=== PATIENT | female | born 1965 | race Caucasian/White ===

== ENCOUNTER 2017-01-29 13:00 | Emergency (ER) | payer MEDICAID ==
[~2017-01-29] VITALS: Ht 154.9 cm; Wt 74.8 kg
[2017-01-29 13:01] VITALS: BP 161/41
== END 2017-01-29 15:16 | disposition home or self-care (01) ==
LOC: ED 13:00
DX: S92.511A Displaced fracture of proximal phalanx of right lesser toe(s), initial encounter for closed fracture (principal); E11.9 Type 2 diabetes mellitus without complications; W22.8XXA Striking against or struck by other objects, initial encounter; Z79.84 Long term (current) use of oral hypoglycemic drugs; Y93.89 Activity, other specified; Y99.8 Other external cause status; Y92.89 Other specified places as the place of occurrence of the external cause

== ENCOUNTER 2017-10-11 19:53 | Emergency (ER) | payer MEDICAID ==
[2017-10-11 21:36] VITALS: BP 124/65
== END 2017-10-11 21:36 | disposition home or self-care (01) ==
LOC: ED 19:53
DX: J06.9 Acute upper respiratory infection, unspecified (principal); Z85.3 Personal history of malignant neoplasm of breast; E11.9 Type 2 diabetes mellitus without complications; I10 Essential (primary) hypertension
CPT/HCPCS: Q0092

== ENCOUNTER 2018-05-10 13:33 | Emergency (ER) | payer MEDICAID ==
[~2018-05-10] VITALS: Ht 152.4 cm; Wt 72.6 kg
[2018-05-10 13:36] VITALS: Ht 152.4 cm; Wt 72.6 kg
[2018-05-10 14:11] LABS: BASOPHIL % 0.3 % (0-2); PLATELET COUNT 147 x10^3mcL (130-400); RED CELL DISTRIBUTION WIDTH 13.1 % (11.5-14.5)
[2018-05-10 14:33] LABS: ALKALINE PHOSPHATASE 359 U/L (46-116); ALT/SGPT 87 U/L (14-59); AMYLASE 67 U/L (25-115); AST/SGOT 80 U/L (15-37); BILIRUBIN TOTAL 0.6 mg/dL (0.20-1.00); CALCIUM 7.9 mg/dL (8.5-10.1); CHLORIDE SERUM 96 mmol/L (98-107); GFR1 > 60 mL/min; LIPASE 137 IU/L (73-393); POTASSIUM SERUM 4.5 mmol/L (3.5-5.1); SODIUM SERUM 130 mmol/L (136-145); TOTAL PROTEIN, SERUM 7.4 g/dL (6.4-8.2)
[2018-05-10 14:43] LABS: ALBUMIN 3.3 g/dL (3.4-5.0)
[2018-05-10 14:45] LABS: GLUCOSE SERUM 458 mg/dL (74-106)
[2018-05-10 16:34] VITALS: BP 143/93
== END 2018-05-10 16:34 | disposition home or self-care (01) ==
LOC: ED 13:33
PROVIDERS: Emergency Medicine
DX: E11.65 Type 2 diabetes mellitus with hyperglycemia (principal); I10 Essential (primary) hypertension; Z85.3 Personal history of malignant neoplasm of breast
CPT/HCPCS: J1815; J7030

== ENCOUNTER 2018-11-05 11:07 | Emergency (ER) | payer MEDICAID ==
[~2018-11-05] VITALS: Ht 152.4 cm; Wt 74.0 kg
[2018-11-05 11:14] VITALS: Ht 152.4 cm; Wt 74.0 kg
[2018-11-05 12:16] LABS: BASOPHIL % 0.6 % (0-2); RED CELL DISTRIBUTION WIDTH 14.3 % (11.5-14.5)
[2018-11-05 12:21] LABS: PLATELET COUNT 106 x10^3mcL (130-400)
[2018-11-05 12:24] LABS: CALCIUM 8.7 mg/dL (8.5-10.1); CARBON DIOXIDE 28.3 mmol/L (21-32); CHLORIDE SERUM 98 mmol/L (98-107); GFR1 > 60 mL/min; GLUCOSE SERUM 422 mg/dL (74-106); POTASSIUM SERUM 3.8 mmol/L (3.5-5.1); SODIUM SERUM 135 mmol/L (136-145)
[2018-11-05 12:29] LABS: ALBUMIN 3.4 g/dL (3.4-5.0); ALKALINE PHOSPHATASE 253 U/L (46-116); ALT/SGPT 52 U/L (14-59); AST/SGOT 42 U/L (15-37); BILIRUBIN TOTAL 0.7 mg/dL (0.20-1.00); TOTAL PROTEIN, SERUM 7.4 g/dL (6.4-8.2)
[2018-11-05 13:16] LABS: microscopic required? NO
[2018-11-05 13:30] LABS: urine erythrocyte NEGATIVE (NEGATIVE)
[2018-11-05 13:39] LABS: AMPHETAMINE QUAL UR NONE DETECTED (See below)
[2018-11-05 16:07] VITALS: BP 111/69
== END 2018-11-05 16:07 | disposition home or self-care (01) ==
LOC: ED 11:07
PROVIDERS: Emergency Medicine
DX: E11.65 Type 2 diabetes mellitus with hyperglycemia (principal); I10 Essential (primary) hypertension; Z85.3 Personal history of malignant neoplasm of breast; Z90.12 Acquired absence of left breast and nipple
CPT/HCPCS: 82962; J1815

== ENCOUNTER 2019-05-21 09:33 | Emergency (ER) | payer MEDICAID ==
[~2019-05-21] VITALS: Ht 154.9 cm; Wt 69.9 kg
[2019-05-21 09:40] VITALS: Ht 154.9 cm; Wt 69.9 kg
[2019-05-21 11:44] LABS: BASOPHIL % 0.4 % (0-2)
[2019-05-21 11:53] LABS: PLATELET COUNT 103 x10^3mcL (130-400); RED CELL DISTRIBUTION WIDTH 14.6 % (11.5-14.5)
[2019-05-21 12:00] LABS: CALCIUM 8.8 mg/dL (8.5-10.1); CARBON DIOXIDE 24.6 mmol/L (21-32); CHLORIDE SERUM 102 mmol/L (98-107); CREATININE SERUM 0.6 mg/dL (0.6-1.0); GFR1 > 60 mL/min; GLUCOSE SERUM 101 mg/dL (74-106); POTASSIUM SERUM 3.7 mmol/L (3.5-5.1); SODIUM SERUM 136 mmol/L (136-145)
[2019-05-21 12:01] LABS: microscopic required? YES; urine erythrocyte NEGATIVE (NEGATIVE)
[2019-05-21 12:05] LABS: ALBUMIN 3.4 g/dL (3.4-5.0); ALKALINE PHOSPHATASE 289 U/L (46-116); ALT/SGPT 78 U/L (14-59); AST/SGOT 74 U/L (15-37); BILIRUBIN TOTAL 0.72 mg/dL (0.20-1.00); TOTAL PROTEIN, SERUM 7.6 g/dL (6.4-8.2)
[2019-05-21 14:39] VITALS: BP 115/66
== END 2019-05-21 14:39 | disposition home or self-care (01) ==
LOC: ED 09:33
PROVIDERS: Emergency Medicine
DX: G44.209 Tension-type headache, unspecified, not intractable (principal); E11.9 Type 2 diabetes mellitus without complications; I10 Essential (primary) hypertension; Z85.3 Personal history of malignant neoplasm of breast; Z98.890 Other specified postprocedural states
CPT/HCPCS: 82962; J1885; J7030

== ENCOUNTER 2020-07-20 07:03 | Emergency (ER) | payer MEDICAID ==
[~2020-07-20] VITALS: Ht 154.9 cm; Wt 73.0 kg
[2020-07-20 08:07] VITALS: BP 110/65
== END 2020-07-20 08:07 | disposition home or self-care (01) ==
LOC: ED 07:03
DX: G44.209 Tension-type headache, unspecified, not intractable (principal); I10 Essential (primary) hypertension; E11.9 Type 2 diabetes mellitus without complications
CPT/HCPCS: J1885; J7030